=== PATIENT | female | born 1960 | race Caucasian/White ===

== ENCOUNTER 2017-04-16 07:34 | Emergency (ER) | payer BC, MEDICAID ==
[2017-04-16] MEDS ORDERED: oxyCODONE TAB* 5 MG TAB PO ONE (08:30)
--- NOTE | 2017-04-16 08:55 | RAD ---
Indication: Left forearm pain. 2 views of left forearm demonstrates no fracture. No other bone or joint abnormality is identified. IMPRESSION: No fracture of the left forearm is noted.
--- NOTE | 2017-04-16 08:57 | RAD ---
Indication: Indication: Left wrist pain. 3 views of left wrist demonstrates degenerative changes of the radiocarpal joint. There is foreshortening of the scaphoid however this may be projectional. IMPRESSION: Degenerative changes of the radiocarpal joint.
--- NOTE | 2017-04-16 08:58 | RAD ---
Indication: Left hand pain. 3 views of left hand demonstrates no fracture. Cystic changes noted in the proximal scaphoid. No other fractures are identified. IMPRESSION: No fracture of the left hand is noted. Degenerative changes of the radiocarpal joint.
[2017-04-16] MEDS ORDERED: HYDROmorphone TAB* 2 MG PO ONE (10:10)
--- NOTE | 2017-04-16 10:16 | ED ---
Upper Extremity Pain - HPI Summary HPI Summary: 56 female presents to ED with complaints of left wrist/hand pain that began yesterday, randomly while up moving around her house. States she has no known trauma or specific injury. Has been using upper body more to support herself as she is awaiting bilateral knee replacements. She is left hand dominant. Admits to some swelling, denies erythema and bruising. No other injuries or complaints. Denies numbness/tingling. No other complaints at this time. No PMHx other than lupus, rheumatoid arthritis. Has tried taking her prescribed 5mg of oxycodone without relief. Unable to move wrist/hand especially thumb/radial side without pain. - History of Current Complaint Chief Complaint: EDExtremityUpper Stated Complaint: LEFT HAND AND ARM PAIN, Time Seen by Provider: 04/16/17 08:58 Hx Obtained From: Patient Mechanism Of Injury: Unknown Onset/Duration: Started Days Ago - yesterday, Still Present Timing: Constant Severity Initially: Severe Severity Currently: Severe Pain Location: Wrist - left, Hand - left, Finger - left thumb Character: Sharp, Aching Aggravating Factor(s): Movement Alleviating Factor(s): Rest Associated Signs & Symptoms: Positive: Swelling. Negative: Redness, Bruising, Weakness, Chest Pain Related History: Dominant Hand Left - Allergies/Home Medications Allergies/Adverse Reactions: Allergies Allergy/AdvReac Type Severity Reaction Status Date / Time Sulfa Drugs Allergy Intermediate diarrhea, Verified 08/18/14 12:44 upset stomach Latex Allergy Unknown Unknown Verified 08/18/14 12:44 Reaction Details contrast dye Allergy Rash Uncoded 04/16/17 07:45 PMH/Surg Hx/FS Hx/Imm Hx Endocrine/Hematology History: Reports: Hx Systemic Lupus Erythematosus Denies: Hx Diabetes Cardiovascular History: Reports: Hx Hypertension Respiratory History: Denies: Hx Chronic Obstructive Pulmonary Disease (COPD) Musculoskeletal History: Reports: Hx Rheumatoid Arthritis Psychiatric History: Reports: Hx Anxiety - Lupus and RA - Surgical History Surgery Procedure, Year, and Place: c section x2, tubal, partial hysterectomy. ulna surgery. stomach stapling. tummy tu - Immunization History Immunizations Up to Date: Yes Infectious Disease History: No Infectious Disease History: Denies: Hx Hepatitis, Traveled Outside the [place] in Last 30 Days - Family History Known Family History: Positive: Unknown - Social History Alcohol Use: None Substance Use Type: Reports: None, Prescribed Smoking Status (MU): Former Smoker Type: Cigarettes Amount Used/How Often: 25 years Have You Smoked in the Last Year: No Review of Systems Constitutional: Negative Cardiovascular: Negative Respiratory: Negative Positive: Arthralgia, Myalgia, Decreased ROM, Edema - left wrist Skin: Negative Neurological: Negative All Other Systems Reviewed And Are Negative: Yes Physical Exam Triage Information Reviewed: Yes Vital Signs On Initial Exam: Initial Vitals Temp Pulse Resp BP Pulse Ox 98.8 F 93 16 135/81 100 04/16/17 07:39 04/16/17 07:39 04/16/17 07:39 04/16/17 07:39 04/16/17 07:39 Vital Signs Reviewed: Yes Appearance: Positive: Well-Appearing, Well-Nourished, Pain Distress - moderate Skin: Positive: Warm, Skin Color Reflects Adequate Perfusion, Dry, Other - no crepitus, step off, obvious deformity, edema, ecchymosis or erythema. Negative : Cold, Cyanosis @, Pale, Erythema @ Head/Face: Positive: Normal Head/Face Inspection Eyes: Positive: EOMI, JANICE, Conjunctiva Clear ENT: Positive: Hearing grossly normal Neck: Positive: Supple, Nontender Respiratory/Lung Sounds: Positive: Clear to Auscultation, Breath Sounds Present. Negative: Rales, Rhonchi, Wheezes Cardiovascular: Positive: Normal, RRR, Pulses are Symmetrical in both Upper and Lower Extremities - 1+. Negative: Murmur, Rub Musculoskeletal: Positive: Limited @ - left wrist, Pain @ - scaphoid tenderness and with any movement of wrist causes patient severe pain, even with passive ROM , Edema Left - wrist, dorsal diffuse when compared to right, Other - no erythema , warmth or signs of infection, negative kanevals signs, is not firm to touch. Negative: Interruption @, Abnormal @ Neurological: Positive: Normal, Sensory/Motor Intact - sensation intact, Alert, Oriented to Person Place, Time, CN Intact II-III, Reflexes Intact, NV Bundle Intact Distally, Normal Gait - [place] Coma Scale Coma Scale Total: 15 Diagnostics - Vital Signs Vital Signs Temp Pulse Resp BP Pulse Ox 04/16/17 09:00 88 137/77 98 04/16/17 08:30 87 139/79 99 04/16/17 08:08 86 100 04/16/17 08:07 134/79 04/16/17 07:39 98.8 F 93 16 135/81 100 - Laboratory Lab Statement: Any lab studies that have been ordered have been reviewed, and results considered in the medical decision making process. - Radiology forearm Xray Interpretation: No Acute Changes - No fracture of the left forearm is noted. Radiology Interpretation Completed By: Radiologist hand /wrist Xray Interpretation: No Acute Changes - No fracture of the left hand is noted. Degenerative changes of the radiocarpal joint. Radiology Interpretation Completed By: Radiologist - CT wrist LUE CT Interpretation: No Acute Changes - Cystic change in the proximal scaphoid without definite evidence of fracture. CT Interpretation Completed By: Radiologist - Ultrasound No standard instances Ultrasound Interpretation: No Acute Changes - No evidence of deep venous thrombosis of the left upper extremity was performed. Ultrasound Interpretation Completed By: Radiologist Re-Evaluation - Re-Evaluation First Eval Re-Evaluation Time: 11:43 Change: Improved - had some relief after diluadid "took the edge off". still somewhat uncomfortable. updated on imaging results and consult with Dr Ross Second Eval Re-Evaluation Time: 12:15 Change: Improved - feels somewhat better, updated on all results. will be d/c with follow up. pain management, rest and naproxen Course/Dx - Course Course Of Treatment: CT, xray and US obtained of wrist due to patient's pain being out of proportion to history and exam. Degenerative changes noted. Given pain management had relief. Spoke with Dr Ross at 11:40am who stated to obtain CT rule out schapoid fx, splint and follow up. cystic change in scaphoid. educated on worsening signs and symptoms. No concern for any other emergent etiology at this time such as tenosynovitis, infection or compartment syndrome. Does not appear necessary for any further work up at this time. No known trauma or injury other than over use and obesity. follow up ortho for further evaluation. - Diagnoses Differential Diagnosis/HQI/PQRI: Positive: Arthritis, Contusion, Fracture ( Closed), Strain, Sprain Provider Diagnoses: Left wrist sprain, Arthritis of wrist, left, degenerative, Bone cyst - Physician Notifications Discussed Care of Patient With: Dr Ross Time Discussed With Above Provider: 11:35 Instructed by Provider To: Have Pt Call For Appt. - CT of wrist and splint Discharge - Discharge Plan Condition: Stable Disposition: HOME Patient Education Materials: Wrist Sprain (ED), Arthritis (ED) Referrals: Thalia Ross MD [Medical Doctor] - Cristian Yin MD [Primary Care Provider] - Additional Instructions: Please make an appointment to follow up with Orthopedics. Continue to wear brace and take pain medication as directed. You may take 2 along with tylenol OR naproxen if pain is unbearable. Rest, ice, elevate and refrain from use as able. Any new or worsening symptoms as discussed please seek medical attention promptly.
[2017-04-16] MEDS ORDERED: Dexamethasone IV* 4 MG/ML 1 ML (4 MG) IM ONE (11:20)
--- NOTE | 2017-04-16 11:43 | RAD ---
Indication: Left upper extremity pain. Duplex Doppler sonography of the left upper extremity deep venous system was performed. Bilaterally the internal jugular veins appear patent with normal phasic flow. The left subclavian vein, axillary vein, brachial vein, cephalic vein, radial vein and ulnar vein are unremarkable. IMPRESSION: No evidence of deep venous thrombosis of the left upper extremity was performed.
[2017-04-16 11:53] VITALS: BP 115/66
--- NOTE | 2017-04-16 12:47 | RAD ---
Indication: Rule out scaphoid fracture. CT of the wrist was obtained in the axial plane. Sagittal and coronal reconstructed images were obtained. The radius and ulna are otherwise unremarkable. The carpal bones are otherwise unremarkable. Cystic change is noted in the proximal scaphoid. No definite fracture is identified. The remainder of the mid carpals are unremarkable. IMPRESSION: Cystic change in the proximal scaphoid without definite evidence of fracture.
== END 2017-04-16 13:15 | disposition home or self-care (01) ==
LOC: ED 07:34
DX: S63.502A Unspecified sprain of left wrist, initial encounter (principal); M79.642 Pain in left hand; M79.89 Other specified soft tissue disorders; M85.60 Other cyst of bone, unspecified site; X58.XXXA Exposure to other specified factors, initial encounter; Y93.9 Activity, unspecified; Y92.9 Unspecified place or not applicable
CPT/HCPCS: 96372; 99282; A9270-GY; J1100

== ENCOUNTER 2018-02-06 09:48 | Emergency (ER) | payer BC, MEDICAID ==
[2018-02-06 10:20] VITALS: BP 154/98
--- NOTE | 2018-02-06 10:50 | UC ---
Knee Pain HPI - HPI Summary HPI Summary: Pt c/o right knee pain s/p falling from stand and "twisting" right knee as she fell. Pt states that she is a pt of Dr. Mckoy and has been told she needs bilateral knee replacements. Due to obesity, pt has been told is not a good candidate for knee replacements until significant weight loss. Pt states right knee pain is worsening and also feels as though it is going to "give out" pt is able to bear weight but states pain is worse with weight bearing - History of Current Complaint Chief Complaint: UCLowerExtremity Stated Complaint: RIGHT KNEE INJURY Time Seen by Provider: 02/06/18 10:14 Hx Obtained From: Patient ?: No Onset/Duration: Gradual Onset, Lasting Days Severity Initially: Mild Severity Currently: Moderate Pain Intensity: 10 Character: Dull, Aching, Stiffness Aggravating Factor(s): Movement, Weight Bearing, Prolonged Standing, Stairs Alleviating Factor(s): Rest, Position Associated Signs And Symptoms: Positive: Swelling Able to Bear Weight: Yes - Risk Factors Septic Arthritis Risk Factor: Negative Gout Risk Factor: Age ^ 41, Obesity - Allergies/Home Medications Allergies/Adverse Reactions: Allergies Allergy/AdvReac Type Severity Reaction Status Date / Time latex Allergy Unknown Verified 02/06/18 10:21 Reaction Details gabapentin AdvReac Nausea Verified 02/06/18 10:21 methotrexate AdvReac Nausea Verified 02/06/18 10:21 Sulfa (Sulfonamide AdvReac Diarrhea, Verified 02/06/18 10:21 Antibiotics) upset stomach tramadol AdvReac Nausea Verified 02/06/18 10:21 contrast dye Allergy Rash Uncoded 02/06/18 10:21 Home Medications: Home Medications Hydrochlorothiazide TAB* [Hydrodiuril TAB*] 25 mg PO DAILY 02/06/18 [History Confirmed 02/06/18] PMH/Surg Hx/FS Hx/Imm Hx Previously Healthy: Yes - lupus, Endocrine History: Dyslipidemia - Surgical History Surgical History: Yes Surgery Procedure, Year, and Place: c section x2, tubal, partial hysterectomy. ulna surgery. stomach stapling. tummy tu - Family History Known Family History: Positive: Unknown - Social History Occupation: Retired Alcohol Use: None Substance Use Type: Prescribed Smoking Status (MU): Former Smoker Type: Cigarettes Amount Used/How Often: 25 years Have You Smoked in the Last Year: No When Did the Patient Quit Smoking/Using Tobacco: 2009 Review of Systems Constitutional: Negative Skin: Negative Eyes: Negative ENT: Negative Respiratory: Negative Cardiovascular: Negative Gastrointestinal: Negative Genitourinary: Negative Motor: Decreased ROM - right knee Neurovascular: Negative Musculoskeletal: Arthralgia, Decreased ROM, Myalgia Neurological: Negative Psychological: Negative Is Patient Immunocompromised?: No All Other Systems Reviewed And Are Negative: Yes Physical Exam Triage Information Reviewed: Yes Appearance: Well-Appearing, Obese Vital Signs: Initial Vital Signs Temp 98.5 F 02/06/18 10:10 Pulse 78 02/06/18 10:10 Resp 16 02/06/18 10:10 BP 154/98 02/06/18 10:10 Pulse Ox 100 02/06/18 10:10 Vital Signs Reviewed: Yes Eye Exam: Normal ENT: Positive: Hearing grossly normal Dental Exam: Normal Neck exam: Normal Respiratory Exam: Normal Respiratory: Positive: No respiratory distress Cardiovascular Exam: Normal Musculoskeletal Exam: Other Musculoskeletal: Positive: Strength Limited @ - left knee, ROM Limited @ - left knee Neurological Exam: Normal Psychological Exam: Normal Skin Exam: Normal Diagnostics - Radiology No standard instances Radiology Interpretation Completed By: Radiologist - IMPRESSION: OSTEOARTHRITIS. NO ACUTE OSSEOUS INJURY. IF SYMPTOMS PERSIST, RECOMMEND REPEAT IMAGING. Knee Pain Course/Dx - Course Course Of Treatment: I discussed xray report with pt. I discussed the need for pt to follow up with PCP , pain clinic provider and orthopedic provider. Pt verbalized understanding and agreed to plan of care. - Differential Dx/Diagnosis Differential Diagnosis/HQI/PQRI: Contusion, Fracture (Closed), Sprain, Strain Provider Diagnoses: right knee contusion Discharge - Sign-Out/Discharge Documenting (check all that apply): Patient Departure - Discharge Plan Condition: Stable Disposition: HOME Prescriptions: Diclofenac Sodium [Voltaren] 4 gm TP Q6H PRN #100 gel..gram. PRN Reason: Pain Patient Education Materials: Knee Pain (ED) Referrals: Virginie Owens MD [Primary Care Provider] - Thalia Ross MD [Family Provider] - As Soon As Possible Additional Instructions: Please follow up with Dr. Ross as soon as possible. - Billing Disposition and Condition Condition: STABLE Disposition: Home
--- NOTE | 2018-02-06 11:07 | RAD ---
HISTORY: fall on knee last week, worsening pain COMPARISONS: None VIEWS: 4, Frontal, lateral, axial, and oblique views right knee FINDINGS: BONE DENSITY: Normal. BONES: There is no displaced fracture. JOINTS: There is mild to moderate tricompartmental osteoarthritis most advanced within the medial compartment. There is no suprapatellar joint effusion or lipohemarthrosis. ALIGNMENT: There is no dislocation. SOFT TISSUES: Unremarkable. OTHER FINDINGS: None. IMPRESSION: OSTEOARTHRITIS. NO ACUTE OSSEOUS INJURY. IF SYMPTOMS PERSIST, RECOMMEND REPEAT IMAGING.
== END 2018-02-06 11:27 | disposition home or self-care (01) ==
LOC: UCCORT 09:48
DX: S80.01XA Contusion of right knee, initial encounter (principal); W17.89XA Other fall from one level to another, initial encounter; Y93.9 Activity, unspecified; Y92.9 Unspecified place or not applicable; Z88.8 Allergy status to other drugs, medicaments and biological substances; Z88.1 Allergy status to other antibiotic agents; Z87.891 Personal history of nicotine dependence
CPT/HCPCS: 99212; G0463

== ENCOUNTER 2024-06-02 03:55 | Observation (INO) ==
[2024-06-02] MEDS: oxyCODONE SR 20 mg TAB PO ONE (04:22)
[2024-06-02] MEDS: Ondansetron 4 mg VIAL 2 MG/ML 2 ml VIAL IV ONE (04:26)
[2024-06-02] MEDS: HYDROmorphone 0.5 MG/0.5 ML SYRINGE IV ONE ×2 (04:33→05:54)
[2024-06-02 04:49] LABS: INR 1.17 (0.85-1.14)
[2024-06-02 04:54] LABS: ABS Basophils 0.1 10^3/uL (0.0-0.1); ABS Lymphocytes 1.7 10^3/uL (1.0-4.8); ABS Monocytes 0.8 10^3/uL (0.0-0.9); ABS Neutrophils 11.7 10^3/uL (1.5-7.6); ABS Nucleated RBC 0.01 10^3/ul; Eosinophil % 0.2 %; Hematocrit 42.8 % (35-45); Hemoglobin 14.4 g/dL (11.5-14.3); Lymphocyte % 11.7 %; Mean Corpuscular Hemoglobin 29.1 pg (27-33); Mean Corpuscular Hgb Conc 33.7 g/dL (31-36); Mean Corpuscular Volume 86.3 fL (80-97); Mean Platelet Volume 8.4 fL (7.5-11.2); Platelet Count 269 10^3/uL (150-450); Red Blood Count 4.96 10^6/uL (3.63-4.92); Red Cell Distribution Width 14.9 % (12-17); White Blood Count 14.4 10^3/uL (3.8-11.8)
[2024-06-02 05:02] LABS: High Sens Troponin Baseline < 3 pg/mL (<15)
[2024-06-02 05:41] LABS: ALT 14 U/L (7-52); AST 15 U/L (13-39); Albumin/Globulin Ratio 1.1 (1-3); Alkaline Phosphatase 71 U/L (35-149); Anion Gap 14 mmol/L (2-16); Blood Urea Nitrogen 15 mg/dL (6-24); CO2 Carbon Dioxide 25 mmol/L (22-32); Calcium 9.9 mg/dL (8.6-10.3); Chloride 102 mmol/L (101-111); Globulin 3.6 g/dL (2-4); Glucose 106 mg/dL (70-100); Lipase 42 U/L (11.0-82.0); Sodium 141 mmol/L (135-145); Total Protein 7.6 g/dL (6.4-8.9); eGFR CKD-EPI 97.1 (>60)
[2024-06-02] MEDS: oxyCODONE SR 10 mg TAB PO ONE (06:04)
[2024-06-02] MEDS: Metoclopramide 5 MG/ML VIAL (10 mg) IV SLOW PU ONE (06:09)
[2024-06-02 07:57] LABS: High Sensitivity Troponin 1 Hr 14 pg/mL (<15)
[2024-06-02] MEDS: methylPREDNISolone SOD SUCC 125 mg 2 ML VIAL IV ONE (08:00)
[2024-06-02] MEDS: Iohexol 350 (CONTRAST) 500 ML MDV IV ONE (08:42)
[2024-06-02 10:12] LABS: High Sensitivity Troponin 3 Hr < 3 pg/mL (<15)
[2024-06-02 10:38] LABS: C Reactive Protein 6.83 mg/L (<8.01)
[2024-06-02] MEDS ORDERED: Sulfur Hexaflouride MICROSPHR 25 MG VIAL IV PRN (12:23)
[2024-06-02 13:09] LABS: Erythrocyte Sed Rate 34 mm/Hr (0-29)
[2024-06-02 13:57] LABS: Cholesterol 220 mg/dL; HDL Cholesterol 59.2 mg/dL; LDL Cholesterol 139 mg/dL; Triglycerides 108 mg/dL
[2024-06-02] MEDS: Enoxaparin 40 MG/0.4 ML SYR SUBCUT SCH (20:53)
[2024-06-03 10:32] VITALS: BP 118/76
[2024-06-03] MEDS ORDERED: Regadenoson 0.4 MG/5 ML SYRINGE ONE (13:11)
== END 2024-06-03 16:34 | disposition home or self-care (01) ==
LOC: EDHOLD 03:55 → ED 03:55 → MEDTELE 18:10
PROVIDERS: ADMIT Hospitalist; ATTEND Hospitalist